=== PATIENT | female | born 1985 | race Caucasian/White ===

== ENCOUNTER 2016-05-24 12:59 | Outpatient (CLI) ==
[2013-02-09 22:54] VITALS: BMI 24.0
--- NOTE | 2016-05-24 15:34 | MRI ---
EXAM: MRI right knee without contrast. HISTORY: Right knee pain. Inside. Posterior medial. No right knee surgery. Swelling.. TECHNIQUE: Using a local extremity coil on a high field strength magnet multiplanar multisequence m agnet resonance imaging performed of the right knee without intravenous or intra-articular gadoliniu m contrast.. COMPARISON: Four view plain film examination right knee 04/08/2016. FINDINGS: Within the medial compartment medial meniscus is intact without discrete surfacing menisc al tear. The medial compartment cartilage congruent without focal underlying subchondral edema. Within the lateral compartment lateral meniscus is intact without discrete surfacing meniscal tear. Lateral compartment cartilage congruent without focal underlying subchondral edema. Within the patellofemoral compartment the patella seated with intact patellar attachment of the medi al and lateral patellar retinaculum. The patellar and trochlear groove cartilage congruent without focal underlying subchondral edema. Trace right knee effusion. No osteochondral loose bodies identified. Intact anterior and posterior cruciate ligament fibers of normal orientation. The extensor mechanism is intact. The medial es ateral ligament as well as lateral collateral ligament complex and posterolateral corner intact. Ov erall bone marrow signal intensity shows no acute fracture, stress fracture or bone erosions. IMPRESSION: No discrete surfacing meniscal tear. Trace right knee effusion. No acute fracture/stress fracture. Intact cruciate and collateral ligaments.
== END 2016-05-24 13:00 | disposition home or self-care (01) ==
LOC: RAD 12:59
PROVIDERS: ATTEND Physician Assistant
DX: M25.561 Pain in right knee (principal)

== ENCOUNTER 2016-09-08 16:17 | Emergency (ER) ==
[2016-09-08 16:23] VITALS: BP 129/79; TEMP 99.3; BMI 22.3
--- NOTE | 2016-09-08 16:52 | DI ---
Exam: Three x-rays of the right ankle. Comparison: None available. Reason for exam: Pain. FINDINGS: No acute fracture or dislocation. The talar dome is intact. There is no widening of the medial or lateral clear spaces. Impression: No acute fracture or dislocation in the right ankle. Report faxed at [phone] hours on 09/08/2016
--- NOTE | 2016-09-08 16:52 | DI ---
Exam: Three x-rays of the right foot. Comparison: None available. Reason for exam: Pain. FINDINGS: No acute fracture or dislocation. The joint spaces are well maintained. No suspicious a ppearing calcific soft tissue densities or radiopaque retained foreign bodies. Impression: No acute fracture or dislocation in the right foot. Report faxed at [phone] hours on 09/08/2016
--- NOTE | 2016-09-08 17:04 | ED.PDOC ---
General ED Provider: Dr. TIMUR FAIR Chief Complaint: Ankle Pain/Injury Stated Complaint: ankle, foot pain Time Seen by Physician: 16:30 Mode of Arrival: Walk-In Information Source: Patient Exam Limitations: No limitations Primary Care Provider: SANJIV CASSIDY Nursing and Triage Documentation Reviewed and Agree: Yes Musculoskeletal Complaint Exam - Ankle/Foot Complaint/Exam Location of Injury: Reports: Right, Ankle, Foot Mechanism of Injury: Reports: Trauma (blunt force) Onset/Duration: 1 day Symptoms Are: Reports: Still present Onset of Pain: Reports: Hours Initial Severity: Moderate Current Severity: Mild Character: Reports: Aching Alleviating: Reports: Rest, Position Aggravating: Reports: Movement Able to Bear Weight: Yes Associated Signs and Symptoms: Denies: Swelling, Redness, Bruising, Fever, Weakness, Numbness, Tingling Gout Risk Factors: Reports: None Related Surgical History: Reports: None Achilles Tendon Abnormality: No Differential Diagnosis: Closed Fracture Review of Systems - Review Of Systems Constitutional: Reports: No symptoms Eyes: Reports: No symptoms Ears, Nose, Mouth, Throat: Reports: No symptoms Respiratory: Reports: No symptoms Cardiac: Reports: No symptoms GI: Reports: No symptoms : Reports: No symptoms Musculoskeletal: Reports: Joint pain Skin: Reports: No symptoms Neurological: Reports: No symptoms Endocrine: Reports: No symptoms Hematologic/Lymphatic: Reports: No symptoms All Other Systems: Reviewed and Negative Past Medical History - Past Medical History Previously Healthy: Yes Endocrine: Reports: None Cardiovascular: Reports: None Respiratory: Reports: None Hematological: Reports: None Gastrointestinal: Reports: None Genitourinary: Reports: None Neuro/Psych: Reports: None Musculoskeletal: Reports: None Cancer: Reports: None Last Menstrual Period: DEPO - Surgical History General Surgical History: Reports: None - Family History Family History: Reports: None - Social History Smoking Status: Former smoker Hx Substance Use: No Alcohol Screening: Occasionally - Immunizations Tetanus Shot up to Date: Yes Physical Exam - Physical Exam Appearance: Well-appearing, No pain distress, Well-nourished Eyes: SAUNDRA, EOMI, Conjunctiva clear ENT: Ears normal, Nose normal, Oropharynx normal Respiratory: Airway patent, Breath sounds clear, Breath sounds equal, Respirations nonlabored Cardiovascular: RRR, Pulses normal, No rub, No murmur GI/: Soft, Nontender, No masses, Bowel sounds normal, No Organomegaly Musculoskeletal: Normal strength, ROM intact, No edema, No calf tenderness Skin: Warm, Dry, Normal color Neurological: Sensation intact, Motor intact, Reflexes intact, Cranial nerves intact, Alert, Oriented Psychiatric: Affect appropriate, Mood appropriate Interpretation - Radiology Interpretation Radiology Interpretation By: Radiologist Radiology Results: No acute changes Critical Care Note - Critical Care Note Total Time (mins): 0 Course - Course Orders, Labs, Meds: Orders Category Date Time Status ANKLE, RIGHT MIN 3 VIEWS Stat RADS 09/08/16 16:32 Completed FOOT, RIGHT 3 VIEWS Stat RADS 09/08/16 16:32 Completed Vital Signs: Temp Pulse Resp BP Pulse Ox 09/08/16 16:17 99.3 F 90 20 129/79 100 Departure - Departure Time of Disposition: 17:04 Disposition: HOME SELF-CARE Discharge Problem: Ankle pain, Foot pain, right Instructions: Arthralgia (ED) Condition: Good Pt referred to PMD for follow-up: No Additional Instructions: Please call your Family Physician as soon as possible to schedule a follow-up appointment. Allergies/Adverse Reactions: Allergies Sulfa (Sulfonamide Antibiotics) Adverse Reaction (Verified 09/08/16 16:26) Home Medications: Ambulatory Orders 1 [No Reported Medications] 02/09/13
== END 2016-09-08 17:11 | disposition home or self-care (01) ==
LOC: ED 16:17
DX: M25.571 Pain in right ankle and joints of right foot (principal); W22.8XXA Striking against or struck by other objects, initial encounter
CPT/HCPCS: 99283

== ENCOUNTER 2017-09-15 18:20 | Emergency (ER) ==
[2017-09-15 18:28] VITALS: BP 122/77; TEMP 99; BMI 23.1
--- NOTE | 2017-09-15 18:36 | ED.PDOC ---
General ED Provider: Dr. PIERRE KOEHLER-ER Chief Complaint: Knee Pain/Injury Stated Complaint: the dog hit my knee last week--it still hurts Time Seen by Physician: 18:34 Mode of Arrival: Walk-In Information Source: Patient Exam Limitations: No limitations Primary Care Provider: AC SEBASTIAN Nursing and Triage Documentation Reviewed and Agree: Yes Reviewed sepsis parameters & appropriate labs ordered?: Yes System Inflammatory Response Syndrome: Not Applicable Sepsis Protocol: For patient's 13 years and over: Temp is 96.8 and below OR 101 and greater Pulse >90 BPM Resp >20/minute Acutely Altered Mental Status Are patient's symptoms suggestive of a new infection, such as: -Pneumonia -Skin, Soft Tissue -Endocarditis -UTI -Bone, Joint Infection -Implantable Device -Acute Abdominal Infection -Wound Infection -Meningitis -Blood Stream Catheter Infection -Unknown Musculoskeletal Complaint Exam - Knee Pain Complaint/Exam Mechanism of Injury: Reports: Trauma Onset/Duration: one week Symptoms Are: Still present Onset of Pain: Reports: Immediate Initial Severity: Mild Current Severity: Mild Location: Reports: Discrete (left knee) Character: Reports: Dull, Aching Alleviating: Reports: Rest Aggravating: Reports: Movement, Weight bearing, Prolonged standing Associated Signs and Symptoms: Reports: Swelling, Bruising Able to Bear Weight: Yes Related History: Reports: Similar episode (hx of knee injury) Septic Arthritis Risk Factors: Reports: None Knee Findings: Present: Tenderness, Limited range of motion Tenderness: Present: Joint Johanny Test Positive: No Evy Test Positive: No Differential Diagnoses: Contusion, Closed Fracture, Sprain, Strain Review of Systems - Review Of Systems Constitutional: Reports: No symptoms Eyes: Reports: No symptoms Ears, Nose, Mouth, Throat: Reports: No symptoms Respiratory: Reports: No symptoms Cardiac: Reports: No symptoms GI: Reports: No symptoms : Reports: No symptoms Musculoskeletal: Reports: Joint pain Skin: Reports: No symptoms Neurological: Reports: No symptoms Endocrine: Reports: No symptoms Hematologic/Lymphatic: Reports: No symptoms All Other Systems: Reviewed and Negative Past Medical History - Past Medical History Previously Healthy: Yes Endocrine: Reports: None Cardiovascular: Reports: None Respiratory: Reports: None Hematological: Reports: None Gastrointestinal: Reports: None Genitourinary: Reports: None Neuro/Psych: Reports: None Musculoskeletal: Reports: None Cancer: Reports: None Last Menstrual Period: unknown - Surgical History General Surgical History: Reports: None - Family History Family History: Reports: None - Social History Smoking Status: Former smoker Hx Substance Use: No Alcohol Screening: Occasionally Lives: With family Physical Exam - Physical Exam Appearance: Well-appearing, No pain distress, Well-nourished Pain Distress: Mild Eyes: SAUNDRA, EOMI, Conjunctiva clear ENT: Ears normal, Nose normal, Oropharynx normal Neck: Supple Respiratory: Airway patent Cardiovascular: RRR, Pulses normal, No rub, No murmur GI/: Soft Musculoskeletal: Limited ROM Skin: Warm, Dry, Normal color Neurological: Sensation intact, Motor intact, Reflexes intact, Cranial nerves intact, Alert, Oriented Psychiatric: Affect appropriate, Mood appropriate Interpretation - Radiology Interpretation Radiology Interpretation By: ED Physician Radiology Results: Negative Critical Care Note - Critical Care Note Total Time (mins): 0 Course - Course Orders, Labs, Meds: Orders Category Date Time Status ED CRUTCHES .ONCE EMERGENCY 09/15/17 18:49 Active Knee immobilizer [ED SPLINT APPLICATION] .ONCE EMERGENCY 09/15/17 18:49 Active KNEE, LEFT 4 VIEWS Stat RADS 09/15/17 18:33 Taken Vital Signs: Temp Pulse Resp BP Pulse Ox 09/15/17 18:21 99 F 117 H 20 122/77 98 Departure - Departure Time of Disposition: 18:50 Disposition: HOME SELF-CARE Discharge Problem: Injury of knee Instructions: Knee Pain (ED) Condition: Good Pt referred to PMD for follow-up: Yes IPMP verified?: No Additional Instructions: stay in immobilizer and use crutches--toradol 10mg qid prn pain #16--talk to your pcp about getting mri of the knee or orthopedic consult Allergies/Adverse Reactions: Allergies Sulfa (Sulfonamide Antibiotics) Adverse Reaction (Verified 09/15/17 18:29) Home Medications: Ambulatory Orders Fluoxetine HCl [Prozac] 20 mg PO DAILY 09/15/17 Disposition Discussed With: Patient
--- NOTE | 2017-09-15 19:02 | DI ---
EXAM: Left knee four views HISTORY: Recent trauma COMPARISON: None. FINDINGS: There is no no evidence of fracture or joint effusion. The joint spaces are well maintain ed. The surrounding soft tissues are unremarkable. IMPRESSION: No acute findings.
== END 2017-09-15 19:14 | disposition home or self-care (01) ==
LOC: ED 18:20
DX: M25.562 Pain in left knee (principal); W54.1XXA Struck by dog, initial encounter
CPT/HCPCS: 99283

== ENCOUNTER 2017-10-10 11:07 | Emergency (ER) ==
[2017-10-10 11:15] VITALS: BP 133/85; TEMP 99.5; BMI 23.0
== END 2017-10-10 13:16 | disposition left against medical advice (07) ==
LOC: ED 11:07
DX: S90.31XA Contusion of right foot, initial encounter (principal); W22.8XXA Striking against or struck by other objects, initial encounter

== ENCOUNTER 2017-10-17 15:35 | Emergency (ER) ==
[2017-10-17 15:35] VITALS: BMI 23.0
[2017-10-17 15:40] VITALS: BP 135/76; TEMP 99.4
--- NOTE | 2017-10-17 16:13 | ED.PDOC ---
General ED Provider: Dr. PIERRE CARRILLO Chief Complaint: Foot Pain/Injury Stated Complaint: CC: Severe Rt Foot Pain. HPI :Pain involving mid plantar surface extending to the Calcaneus region -involving medial calcaneus region as well. Was swimming at [employer] going down the slide with her niece and was attempting to keep her above water forcefully slammed Rt Foot against the concrete surface of bottom. Experiencing severe pain ever since with ecchymoses around medial malleolus and distal fibula and lat malleolus Time Seen by Physician: 16:15 Mode of Arrival: Walk-In Information Source: Patient Exam Limitations: No limitations Primary Care Provider: AC SEBASTIAN Nursing and Triage Documentation Reviewed and Agree: Yes Does patient meet sepsis criteria?: No System Inflammatory Response Syndrome: Not Applicable Sepsis Protocol: For patient's 13 years and over: Temp is 96.8 and below OR 101 and greater Pulse >90 BPM Resp >20/minute Acutely Altered Mental Status Are patient's symptoms suggestive of a new infection, such as: -Pneumonia -Skin, Soft Tissue -Endocarditis -UTI -Bone, Joint Infection -Implantable Device -Acute Abdominal Infection -Wound Infection -Meningitis -Blood Stream Catheter Infection -Unknown Musculoskeletal Complaint Exam - Ankle/Foot Complaint/Exam Location of Injury: Reports: Right, Ankle, Foot Mechanism of Injury: Reports: Trauma Onset/Duration: 2 Symptoms Are: Reports: Still present Onset of Pain: Reports: Immediate Initial Severity: Moderate Current Severity: Severe Location: Reports: Discrete Character: Reports: Sharp, Dull, Aching, Burning Alleviating: Reports: Rest Aggravating: Reports: Movement, Weight bearing, Prolonged standing Able to Bear Weight: Yes (but painful) Related History: Reports: Similar episode Gout Risk Factors: Reports: None Related Surgical History: Reports: None Lower Extremity Findings: Present: Swelling, Ecchymosis, Tenderness. Absent: Ligamentous instability Tenderness: Present: Medial malleolus, Lateral malleolus, Heel, Achilles insertion, Midfoot, Metatarsals Limited Range of Motion: Present: Inversion, Plantarflexion (painful) Differential Diagnosis: Contusion, Closed Fracture, Open Fracture, Sprain, Strain Review of Systems - Review Of Systems Constitutional: Reports: No symptoms Eyes: Reports: No symptoms Ears, Nose, Mouth, Throat: Reports: No symptoms Respiratory: Reports: No symptoms Cardiac: Reports: No symptoms GI: Reports: No symptoms : Reports: No symptoms Musculoskeletal: Reports: Joint pain, Muscle pain Skin: Reports: No symptoms Neurological: Reports: No symptoms Endocrine: Reports: No symptoms Hematologic/Lymphatic: Reports: No symptoms All Other Systems: Reviewed and Negative Past Medical History - Past Medical History Endocrine: Reports: None Cardiovascular: Reports: None Respiratory: Reports: None Hematological: Reports: None Gastrointestinal: Reports: None Genitourinary: Reports: None Neuro/Psych: Reports: None Musculoskeletal: Reports: None Cancer: Reports: None Last Menstrual Period: depo - Surgical History General Surgical History: Reports: None - Family History Family History: Reports: None - Social History Smoking Status: Former smoker Hx Substance Use: No Alcohol Screening: Occasionally Physical Exam - Physical Exam Appearance: Well-appearing, No pain distress, Well-nourished Eyes: SAUNDRA, EOMI, Conjunctiva clear ENT: Ears normal, Nose normal, Oropharynx normal Respiratory: Airway patent, Breath sounds clear, Breath sounds equal, Respirations nonlabored Cardiovascular: RRR, Pulses normal, No rub, No murmur GI/: Soft, Nontender, No masses, Bowel sounds normal, No Organomegaly Musculoskeletal: Normal strength, ROM intact, No calf tenderness, Limited strength (marked pain to palpation over medial and posterior calcaneus/ not crepitance), Calf tenderness (distal) Skin: Warm, Dry, Normal color Neurological: Sensation intact, Motor intact, Reflexes intact, Cranial nerves intact, Alert, Oriented Psychiatric: Affect appropriate, Mood appropriate Critical Care Note - Critical Care Note Total Time (mins): 0 Course - Course Orders, Labs, Meds: Orders Category Date Time Status Hydrocodone Bit/Acetaminophen [[place] 10-325] MEDS 10/17/17 16:23 Discontinued 1 tab PO ONCE STA CT FOOT RIGHT WITHOUT CONTRAST Stat RADS 10/17/17 16:19 Completed Medications Discontinued Medications Generic Name Dose Route Start Last Admin Trade Name Freq PRN Reason Stop Dose Admin Hydrocodone Bitart/Acetaminophen 1 tab 10/17/17 16:23 10/17/17 16:29 [place] 10-325 PO 10/17/17 16:24 1 tab ONCE STA Administration Vital Signs: Temp Pulse Resp BP Pulse Ox 10/17/17 15:35 99.4 F 101 H 18 135/76 99 Departure - Departure Time of Disposition: 18:15 Disposition: HOME SELF-CARE Discharge Problem: Contusion of foot, right, Right foot strain Instructions: Foot Contusion (ED) Condition: Good Pt referred to PMD for follow-up: Yes IPMP verified?: No Additional Instructions: Minimize Weight bearing ambulation kalyn wrap Ice; Elevate Meds for pain relief-Ibuprofen 200 mg 2-3 every 6 hrs for pain control [place] for pain unrelieved by [place] See PCP in 4-5 days Allergies/Adverse Reactions: Allergies Sulfa (Sulfonamide Antibiotics) Adverse Reaction (Verified 10/17/17 15:40) Home Medications: Ambulatory Orders Fluoxetine HCl [Prozac] 20 mg PO DAILY 09/15/17 Hydrocodone/Acetaminophen [[place] 7.5-325 Tablet] 1 each PO Q6-8H PRN #10 tablet 10/17/17 Disposition Discussed With: Patient, Family
[2017-10-17] MEDS ORDERED: NORCO 10-325 PO STA (16:23)
--- NOTE | 2017-10-17 17:17 | CT ---
EXAM: Helical CT of the right foot without contrast. Coronal sagittal reformats were performed. HISTORY: Blunt trauma to bottom of foot and calcaneus. COMPARISONS: Right foot radiographs 09/08/2016. FINDINGS: No evidence of acute fracture or dislocation is seen. The calcaneus appears intact. Visua lized joint spaces and alignment appear preserved. Ankle mortise appears congruent. The talar dome has a normal contour. No significant soft tissue swelling is seen. No evidence of radiopaque foreig n body in the plantar aspect of the foot is seen. IMPRESSION: No acute displaced fracture or dislocation.
== END 2017-10-17 18:30 | disposition home or self-care (01) ==
LOC: ED 15:35
DX: S90.31XA Contusion of right foot, initial encounter (principal); S96.911A Strain of unspecified muscle and tendon at ankle and foot level, right foot, initial encounter; W22.8XXA Striking against or struck by other objects, initial encounter; Y93.11 Activity, swimming; Y92.34 Swimming pool (public) as the place of occurrence of the external cause
CPT/HCPCS: 99283